=== PATIENT | female | born 1980 | race Caucasian/White ===

== ENCOUNTER → 2020-05-12 14:25 | Outpatient (BNVA) | payer OTHER, SELFPAY | PROVIDERS: Visit Provider Obstetrics & Gynecology | DX: Z12.4 Encounter for screening for malignant neoplasm of cervix (principal); Z01.419 Encounter for gynecological examination (general) (routine) without abnormal findings | CPT/HCPCS: 88175 ==

== ENCOUNTER 2020-12-07 09:15 | Emergency (ER) | payer OTHER, SELFPAY ==
[2020-12-07 09:54] VITALS: BP 129/82; PULSE 70; RESP 14; TEMP 35.8; O2SAT 100; BMI 20.5
--- NOTE | 2020-12-07 10:54 | CT_ITS ---
WS: [id number] CT ABDOMEN AND PELVIS NONCONTRAST HISTORY: right flank pain with nausea/vomiting TECHNIQUE: Imaging performed through the abdomen and pelvis. Coronal and sagittal reformats are submi tted. All CT scans at [facility] use at least one of these dose optimization techniques: auto mated exposure control; mA and/or kV adjustment per patient size (includes targeted exams where dose is matched to clinical indication); or iterative reconstruction. DLP: 485.01 mGy.cm COMPARISON: None available. Lower thorax: Lung bases are clear. Visualized heart is normal. No hiatal hernia. Liver: Normal size liver. No mass or bile duct dilatation. Gallbladder: Normal gallbladder. Pancreas: Normal size and attenuation. Normal pancreatic duct. No pancreatitis or mass. Spleen: Normal. Adrenal glands: Normal. No mass. Right kidney: Mildly enlarged edematous RIGHT kidney. Mild dilatation of the RIGHT renal pelvis and R IGHT ureter secondary to a 3 mm calcification at the RIGHT UV junction. This calcification may actual ly be extruded into the bladder. No additional renal calcification. Left kidney: Normal size kidney with no mass or hydronephrosis. Aorta: Normal abdominal aorta, no aneurysm or atherosclerosis. No free fluid, intraperitoneal air or significant lymphadenopathy. GI tract: Normal appendix. No GI tract obstruction or inflammation. Abdominal wall: Small umbilical hernia contains fat only. Pelvis: Normally distended bladder. Small fibroid measures 12 mm from the fundus of the uterus. 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 CT/CT kidney stone 17301 IMPRESSION: 1. Mild RIGHT hydroureteronephrosis secondary to 3 mm stone at the UV junction . 2. Normal appendix.
--- NOTE | 2020-12-07 10:59 | W.ED.FEMALGU ---
Documented by User: RIMA Yuen 12/08/20 07:16 HPI - Female Genitourinary General: Chief complaint: Urogenital-Female Stated complaint: Abdominal & Back Pain, Vomiting Time Seen by Provider: 12/07/20 09:18 History of Present Illness: HPI Narrative: Patient is a 40-year-old female comes to the ED with right flank pain nausea and vomiting. Patient says symptoms started this morning. Says she woke up with some mild back pain that then progressed got a lot worse. She says the pain was in the right side of her back and then radiated into the right flank and right pelvic region. She rates the pain currently a 10 out of 10. No worsening or relieving factors noted. She describes that she cannot get comfortable due to the pain. She has never had an episode of pain like this in the past. She has had multiple episodes of emesis since onset of severe pain. Denies any past history or surgeries in the abdomen. Patient says she is currently on her menstrual period, but says that it is normal and she is experiencing her normal bleeding. Denies any other vaginal discharge, dysuria, hematuria, diarrhea, constipation, fever, chills. Associated symptoms: Reports nausea; Deny abdominal pain or headache(s) Review of Systems Const: Denies: fever(s), chills or fatigue Eyes: Denies: change in vision or eye discomfort ENMT: Denies: throat pain, odynophagia, nasal discharge or nasal congestion Card: Denies: chest pain, palpitations, edema, swelling of feet/ankles, dyspnea on exertion or orthopnea Resp: Denies: dyspnea, productive cough or non-productive cough GI: Reports: nausea and vomiting; Denies: abdominal pain, diarrhea, constipation or hematochezia : Reports: flank pain (right flank); Denies: dysuria or hematuria Musc: Denies: neck pain, back pain or extremity swelling Skin/Breast: Denies: rash or new lesions Neuro: Denies: headache(s), numbness in extremities or weakness in extremities PFSH ED PFSH: Family History Denies family history of Diabetes Ovarian cyst CAD (coronary artery disease) Clotting disorder Hyperlipidemia Chronic kidney disease (CKD) Anesthesia complication Family history of thyroid problem Bleeding disorder Cancer Hypertension Stroke Social History Smoking and tobacco status: never smoked Alcohol intake: never Physical Exam Const: COMMON NORMALS: patient oriented x3 and alert GENERAL APPEARANCE: cooperative and in distress (Patient appears uncomfortable and in pain.) HENMT: COMMON NORMALS: normocephalic HEAD & SCALP: normocephalic MOUTH: Normal oral and palatal mucosa present THROAT: posterior oropharynx normal and uvula midline Neck/C-Spine: COMMON NORMALS: supple GENERAL: Yes normal visual inspection Resp: COMMON NORMALS: normal respiratory effort, No retractions, No use of accessory muscles and clear to auscultation bilaterally AUSCULTATION: clear to auscultation bilaterally Cardio: COMMON NORMALS: regular rate, regular rhythm, S1 normal heart sound present, S2 normal heart sound present, No gallops present (Cardio), No clicks present (Cardio), No murmurs present (Cardio) and Peripheral pulses 2+ throughout RATE: regular rate RHYTHM: regular rhythm HEART SOUNDS: S1 normal heart sound present and S2 normal heart sound present PERIPHERAL PULSES: Peripheral pulses 2+ throughout GI: COMMON NORMALS: Normal to inspection, nondistended, normoactive bowel sounds present, Soft to palpation, non-tender and no masses PALPATION: Yes Soft to palpation OTHER: No palpable abdominal tenderness noted in all 4 quadrants. Negative McBurney's point Rovsing sign. : BLADDER/KIDNEY EXAM: Yes CVA tenderness Back/Pelvis: GENERAL BACK: Yes CVA tenderness CVA tenderness: right Extremity: COMMON NORMALS: normal to inspection Neuro: COMMON NORMALS: patient oriented x3 and moves all extremities SENSORIUM/ORIENTATION: Yes alert Skin: GENERAL SKIN EXAM: dry skin Course ED course: After patient was given IV morphine and Toradol her pain improved greatly. Vital Signs: Vital signs: Vital Signs Temperature 96.4 F L 12/07/20 09:54 Pulse Rate 101 H 12/07/20 13:00 Respiratory Rate 18 12/07/20 11:12 Blood Pressure 113/90 12/07/20 13:00 Pulse Oximetry 98 12/07/20 13:00 MDM - Female MDM Narrative: Medical decision making narrative: Patient is a 40-year-old female comes to the ED with acute onset of right flank pain with nausea and vomiting. White blood cell count 16 and the rest of CBC and CMP were unremarkable. UA showed blood but no other findings suggestive of infection. Vital stable. CT of abdomen pelvis showed a 3 mm stone right UVJ. Patient was given IV fluids, Toradol, tamsulosin, zofran and her symptoms improved greatly. I placed order with case management for patient be referred to Dr. Llanos. Patient diagnosed with right kidney stone and discharged home with a prescription for tamsulosin, hydrocodone and Zofran. She was told to strain her urine to catch stone and bring it to Dr. Llanos appointment so they can further analyze it. Return to ED precautions given. Patient was told medical case worker will contact you in the next several days to set up an appointment with Dr. Llanos. Patient stood agree with plan. Lab Data: Labs: Lab Results 12/07/20 12/07/20 12/07/20 10:55 10:55 10:55 WBC 16.0 10^3/uL H 10 ^3/uL (4.0-10.0) RBC 5.37 10^6/uL H 10 ^6/uL (4.1-5.3) Hgb 15.6 g/dL H g/dL (11.5-15.3) Hct 47.4 % H % (37.0-47.0) MCV 88.3 fl fl (81-99) MCH 29.1 pg pg (28.0-34.0) MCHC 32.9 g/dL g/dL (30.0-36.0) RDW 11.9 % L % (12.1-15.1) Plt Count 289 10^3/cmm 10^3 /cmm (130-400) MPV 9.9 fL fL (7.4-10.4) Neut % (Auto) 90.4 % % Lymph % (Auto) 5.4 % % Greene % (Auto) 3.7 % % Eos % (Auto) 0.0 % % Baso % (Auto) 0.3 % % Neut # (Auto) 14.46 10^3/uL H 1 0^3/uL (1.8-7.7) Lymph # (Auto) 0.9 10^3/uL 10^3/ uL (0.8-4.8) Greene # (Auto) 0.6 10^3/uL 10^3/ uL (0.2-0.9) Eos # (Auto) 0.0 10^3/uL 10^3/ uL (0.0-0.8) Baso # (Auto) 0.1 10^3/uL 10^3/ uL (0.0-0.1) Nucleated RBC % (a uto) 0 % % Nucleated RBCs # 0.0 /100WBC /100W BC Sodium 138 mmol/L mmol/L (136-145) Potassium 3.9 mmol/L mmol/L (3.5-5.1) Chloride 102 mmol/L mmol/L (98-107) Carbon Dioxide 23 mmol/L mmol/L (22-29) Anion Gap 16.9 (5-19) BUN 13 mg/dL mg/dL (6-20) Creatinine 0.7 mg/dL mg/dL (0.5-0.9) GFR Calculation 91.8 mL/min mL/mi n (90-130) Glucose 120 mg/dL H mg/dL (65-115) Calculated Osmolal ity 287 mOsm/kg mOsm/ kg (285-295) Calcium 9.6 mg/dL mg/dL (8.5-10.5) Total Bilirubin 0.6 mg/dL mg/dL (0.15-1.2) AST 15 U/L U/L (0-32) ALT 9 U/L U/L (0-33) Alkaline Phosphata se 65 IU/L IU/L (35-105) Total Protein 7.9 g/dL g/dL (6.6-8.7) Albumin 4.7 g/dL g/dL (3.5-5.2) Globulin 3.2 g/dL g/dL (1.3-4.6) Lipase 24 U/L U/L (13-60) HCG, Qual Negative (Negative) Urine Color Urine Appearance Urine pH Ur Specific Gravit y Urine Protein Urine Glucose (UA) Urine Ketones Urine Blood Urine Nitrate Urine Bilirubin Urine Urobilinogen Ur Leukocyte Erin ase Urine RBC Urine WBC Ur Squamous Epith Cells Amorphous Sediment Urine Bacteria Urine Mucus 12/07/20 12:04 WBC RBC Hgb Hct MCV MCH MCHC RDW Plt Count MPV Neut % (Auto) Lymph % (Auto) Greene % (Auto) Eos % (Auto) Baso % (Auto) Neut # (Auto) Lymph # (Auto) Greene # (Auto) Eos # (Auto) Baso # (Auto) Nucleated RBC % (a uto) Nucleated RBCs # Sodium Potassium Chloride Carbon Dioxide Anion Gap BUN Creatinine GFR Calculation Glucose Calculated Osmolal ity Calcium Total Bilirubin AST ALT Alkaline Phosphata se Total Protein Albumin Globulin Lipase HCG, Qual Urine Color Yellow (Yellow) Urine Appearance Cloudy (CLEAR) Urine pH 6 (5-7) Ur Specific Gravit y 1.015 (1.005-1.030) Urine Protein Neg (Negative) Urine Glucose (UA) Norm (Normal) Urine Ketones Negative (Negative) Urine Blood 3+ H (Negative) Urine Nitrate Negative (Negative) Urine Bilirubin Neg (Negative) Urine Urobilinogen Norm mg/dL mg/dL (Negative) Ur Leukocyte Erin ase Negative (Negative) Urine RBC 25-40 /hpf H /hpf (0-2) Urine WBC 0-4 /hpf H /hpf (0-5) Ur Squamous Epith Cells 0-4 /hpf H /hpf (0-5) Amorphous Sediment Not Reportable Urine Bacteria 1+ /hpf H /hpf (NONE) Urine Mucus 1+ /hpf /hpf Imaging Data: CT Abd/Pel: Attestation: I personally reviewed and interpreted this imaging study as follows: Radiologist's impression: [place] [address] CT Scan Report Signed Patient: Maria Isabel Mckeon Unit #: [id number] : 1980 Age/Sex: 40 / F ADM Date: 12/07/20 Loc: ER Room/Bed: Attending Dr: Ordering Provider/Ordering MD: Yordy Murphy Date of Service: 12/07/20 Procedure(s): CT kidney stone 95303 Accession Number(s): [id number] Report Number: [id number] WS: [id number] CT ABDOMEN AND PELVIS NONCONTRAST HISTORY: right flank pain with nausea/vomiting TECHNIQUE: Imaging performed through the abdomen and pelvis. Coronal and sagittal reformats are submitted. All CT scans at [facility] use at least one of these dose optimization techniques: automated exposure control; mA and/or kV adjustment per patient size (includes targeted exams where dose is matched to clinical indication); or iterative reconstruction. DLP: 485.01 mGy.cm COMPARISON: None available. Lower thorax: Lung bases are clear. Visualized heart is normal. No hiatal hernia. Liver: Normal size liver. No mass or bile duct dilatation. Gallbladder: Normal gallbladder. Pancreas: Normal size and attenuation. Normal pancreatic duct. No pancreatitis or mass. Spleen: Normal. Adrenal glands: Normal. No mass. Right kidney: Mildly enlarged edematous RIGHT kidney. Mild dilatation of the RIGHT renal pelvis and RIGHT ureter secondary to a 3 mm calcification at the RIGHT UV junction. This calcification may actually be extruded into the bladder. No additional renal calcification. Left kidney: Normal size kidney with no mass or hydronephrosis. Aorta: Normal abdominal aorta, no aneurysm or atherosclerosis. No free fluid, intraperitoneal air or significant lymphadenopathy. GI tract: Normal appendix. No GI tract obstruction or inflammation. Abdominal wall: Small umbilical hernia contains fat only. Pelvis: Normally distended bladder. Small fibroid measures 12 mm from the fundus of the uterus. 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 CT/CT kidney stone [id number] IMPRESSION: 1. Mild RIGHT hydroureteronephrosis secondary to 3 mm stone at the UV junction. 2. Normal appendix. Dictated By: Anna Davila DO Signed By: Anna Davila DO Signed Date/Time: 12/07/20 1202 DD/ 1158 Discharge Plan Discharge Patient Disposition: Home Clinical Impression: Kidney stone on right side Condition: Stable Prescriptions: New tamsulosin 0.4 mg capsule 0.4 mg PO DAILY Qty: 15 RF: 0 naproxen 500 mg tablet 500 mg PO BID PRN (Reason: pain) Qty: 15 RF: 0 ondansetron 4 mg tablet,disintegrating 4 mg PO Q8H PRN (Reason: nausea and vomiting) Qty: 10 RF: 0 No Action Zyrtec 10 mg capsule 10 mg PO DAILY RF: 0 norethindrone-e.estradiol-iron [Blisovi Fe 04/01 (28)] 1 mg-20 mcg (21)/75 mg (7) tablet 1 tab PO DAILY RF: 0 levonorgestrel-ethinyl estrad [Aviane] 0.1-20 mg-mcg tablet 1 tab PO DAILY Qty: 84 RF: 5 Discharge Orders: Discharge ED (Routine); Ordered 12/07/20 Ordered By: Yordy Arellano: Abigail Randall, [employer] [Primary Care Provider] - Discharge Diet: Regular Discharge Activity: Increase activity as tolerated Patient Instructions: Kidney Stones (ED), How to Strain Your Urine (ED), Opioid Safety Activity Restrictions/Additional Instructions: Follow-up with medical provider as directed. Case management should be contacting you in the next several days to set up an appointment with Dr. Llanos the urologist. Strain urine to catch stone and drink lots of fluid to stay hydrated and help pass stone. Take medications as prescribed. Tamsulosin you can take daily until you passed the kidney stone then stop taking medication. Return to the ER or your medical provider if condition worsens. Please read and understand discharge instructions. If any questions, please ask. Coding Level of Care Code ED Electrical Tech/Project Manager for Chg Fwd Exam Comprehensive Documented by User: Angel Perera DO 12/08/20 08:18 HPI - Female Genitourinary General: Chief complaint: Urogenital-Female Stated complaint: Abdominal & Back Pain, Vomiting Time Seen by Provider: 12/07/20 09:18 [facility] ED PFSH: Family History Denies family history of Diabetes Ovarian cyst CAD (coronary artery disease) Clotting disorder Hyperlipidemia Chronic kidney disease (CKD) Anesthesia complication Family history of thyroid problem Bleeding disorder Cancer Hypertension Stroke Social History Smoking and tobacco status: never smoked Alcohol intake: never Course Vital Signs: Vital signs: Vital Signs Temperature 96.4 F L 12/07/20 09:54 Pulse Rate 101 H 12/07/20 13:00 Respiratory Rate 18 12/07/20 11:12 Blood Pressure 113/90 12/07/20 13:00 Pulse Oximetry 98 12/07/20 13:00 MDM - Female MDM Narrative: Medical decision making narrative: Case reviewed with Yordy Murphy. Agree with assessment and plan. Lab Data: Labs: Lab Results 12/07/20 12/07/20 12/07/20 10:55 10:55 10:55 WBC 16.0 10^3/uL H 10 ^3/uL (4.0-10.0) RBC 5.37 10^6/uL H 10 ^6/uL (4.1-5.3) Hgb 15.6 g/dL H g/dL (11.5-15.3) Hct 47.4 % H % (37.0-47.0) MCV 88.3 fl fl (81-99) MCH 29.1 pg pg (28.0-34.0) MCHC 32.9 g/dL g/dL (30.0-36.0) RDW 11.9 % L % (12.1-15.1) Plt Count 289 10^3/cmm 10^3 /cmm (130-400) MPV 9.9 fL fL (7.4-10.4) Neut % (Auto) 90.4 % % Lymph % (Auto) 5.4 % % Greene % (Auto) 3.7 % % Eos % (Auto) 0.0 % % Baso % (Auto) 0.3 % % Neut # (Auto) 14.46 10^3/uL H 1 0^3/uL (1.8-7.7) Lymph # (Auto) 0.9 10^3/uL 10^3/ uL (0.8-4.8) Greene # (Auto) 0.6 10^3/uL 10^3/ uL (0.2-0.9) Eos # (Auto) 0.0 10^3/uL 10^3/ uL (0.0-0.8) Baso # (Auto) 0.1 10^3/uL 10^3/ uL (0.0-0.1) Nucleated RBC % (a uto) 0 % % Nucleated RBCs # 0.0 /100WBC /100W BC Sodium 138 mmol/L mmol/L (136-145) Potassium 3.9 mmol/L mmol/L (3.5-5.1) Chloride 102 mmol/L mmol/L (98-107) Carbon Dioxide 23 mmol/L mmol/L (22-29) Anion Gap 16.9 (5-19) BUN 13 mg/dL mg/dL (6-20) Creatinine 0.7 mg/dL mg/dL (0.5-0.9) GFR Calculation 91.8 mL/min mL/mi n (90-130) Glucose 120 mg/dL H mg/dL (65-115) Calculated Osmolal ity 287 mOsm/kg mOsm/ kg (285-295) Calcium 9.6 mg/dL mg/dL (8.5-10.5) Total Bilirubin 0.6 mg/dL mg/dL (0.15-1.2) AST 15 U/L U/L (0-32) ALT 9 U/L U/L (0-33) Alkaline Phosphata se 65 IU/L IU/L (35-105) Total Protein 7.9 g/dL g/dL (6.6-8.7) Albumin 4.7 g/dL g/dL (3.5-5.2) Globulin 3.2 g/dL g/dL (1.3-4.6) Lipase 24 U/L U/L (13-60) HCG, Qual Negative (Negative) Urine Color Urine Appearance Urine pH Ur Specific Gravit y Urine Protein Urine Glucose (UA) Urine Ketones Urine Blood Urine Nitrate Urine Bilirubin Urine Urobilinogen Ur Leukocyte Erin ase Urine RBC Urine WBC Ur Squamous Epith Cells Amorphous Sediment Urine Bacteria Urine Mucus 12/07/20 12:04 WBC RBC Hgb Hct MCV MCH MCHC RDW Plt Count MPV Neut % (Auto) Lymph % (Auto) Greene % (Auto) Eos % (Auto) Baso % (Auto) Neut # (Auto) Lymph # (Auto) Greene # (Auto) Eos # (Auto) Baso # (Auto) Nucleated RBC % (a uto) Nucleated RBCs # Sodium Potassium Chloride Carbon Dioxide Anion Gap BUN Creatinine GFR Calculation Glucose Calculated Osmolal ity Calcium Total Bilirubin AST ALT Alkaline Phosphata se Total Protein Albumin Globulin Lipase HCG, Qual Urine Color Yellow (Yellow) Urine Appearance Cloudy (CLEAR) Urine pH 6 (5-7) Ur Specific Gravit y 1.015 (1.005-1.030) Urine Protein Neg (Negative) Urine Glucose (UA) Norm (Normal) Urine Ketones Negative (Negative) Urine Blood 3+ H (Negative) Urine Nitrate Negative (Negative) Urine Bilirubin Neg (Negative) Urine Urobilinogen Norm mg/dL mg/dL (Negative) Ur Leukocyte Erin ase Negative (Negative) Urine RBC 25-40 /hpf H /hpf (0-2) Urine WBC 0-4 /hpf H /hpf (0-5) Ur Squamous Epith Cells 0-4 /hpf H /hpf (0-5) Amorphous Sediment Not Reportable Urine Bacteria 1+ /hpf H /hpf (NONE) Urine Mucus 1+ /hpf /hpf Discharge Plan Discharge Patient Disposition: Home Clinical Impression: Kidney stone on right side Condition: Stable Prescriptions: New tamsulosin 0.4 mg capsule 0.4 mg PO DAILY Qty: 15 RF: 0 naproxen 500 mg tablet 500 mg PO BID PRN (Reason: pain) Qty: 15 RF: 0 ondansetron 4 mg tablet,disintegrating 4 mg PO Q8H PRN (Reason: nausea and vomiting) Qty: 10 RF: 0 No Action Zyrtec 10 mg capsule 10 mg PO DAILY RF: 0 norethindrone-e.estradiol-iron [Blisovi Fe 04/01 (28)] 1 mg-20 mcg (21)/75 mg (7) tablet 1 tab PO DAILY RF: 0 levonorgestrel-ethinyl estrad [Aviane] 0.1-20 mg-mcg tablet 1 tab PO DAILY Qty: 84 RF: 5 Discharge Orders: Discharge ED (Routine); Ordered 12/07/20 Ordered By: Yordy Murphy Referrals: Abigail Randall, [employer] [Primary Care Provider] - Discharge Diet: Regular Discharge Activity: Increase activity as tolerated Patient Instructions: Kidney Stones (ED), How to Strain Your Urine (ED), Opioid Safety Activity Restrictions/Additional Instructions: Follow-up with medical provider as directed. Case management should be contacting you in the next several days to set up an appointment with Dr. Llanos the urologist. Strain urine to catch stone and drink lots of fluid to stay hydrated and help pass stone. Take medications as prescribed. Tamsulosin you can take daily until you passed the kidney stone then stop taking medication. Return to the ER or your medical provider if condition worsens. Please read and understand discharge instructions. If any questions, please ask. Coding Level of Care Code ED Electrical Tech/Project Manager for Alex Fwd Exam Comprehensive
[2020-12-07] MEDS: sodium chloride 0.9% 1,000 ML 999 ML IV (11:09)
[2020-12-07 11:10] VITALS: RESP 14; O2SAT 100
[2020-12-07] MEDS: morphine 4 mg/mL SDV 1 mL IVP (11:10)
[2020-12-07] MEDS: ondansetron 2 mg/ML SDV 2 mL 4 MG IVP (11:10)
[2020-12-07 11:12] VITALS: BP 107/60; RESP 18
[2020-12-07 11:22] LABS: Basophils # 0.1 10^3/uL (0.0-0.1); Basophils % 0.3 %; Hematocrit 47.4 % (37.0-47.0); Hemoglobin 15.6 g/dL (11.5-15.3); Lymphocytes # 0.9 10^3/uL (0.8-4.8); Lymphocytes % 5.4 %; Mean Corpuscular HGB Conc 32.9 g/dL (30.0-36.0); Mean Corpuscular Hemoglobin 29.1 pg (28.0-34.0); Mean Corpuscular Volume 88.3 fl (81-99); Mean Platelet Volume 9.9 fL (7.4-10.4); Monocytes # 0.6 10^3/uL (0.2-0.9); Monocytes % 3.7 %; Neutrophils # 14.46 10^3/uL (1.8-7.7); Neutrophils % 90.4 %; Nucleated Red Blood Cells % 0 %; Platelet Count 289 10^3/cmm (130-400); Red Blood Count 5.37 10^6/uL (4.1-5.3); Red Cell Distribution Width 11.9 % (12.1-15.1)
[2020-12-07 11:37] LABS: Alanine Aminotransferase 9 U/L (0-33); Albumin Level 4.7 g/dL (3.5-5.2); Alkaline Phosphatase 65 IU/L (35-105); Aspartate Amino Transferase 15 U/L (0-32); Blood Urea Nitrogen 13 mg/dL (6-20); Calcium 9.6 mg/dL (8.5-10.5); Carbon Dioxide 23 mmol/L (22-29); Chloride 102 mmol/L (98-107); Globulin 3.2 g/dL (1.3-4.6); Glomerular Filtration Rate 91.8 mL/min (90-130); Glucose 120 mg/dL (65-115); HCG, Serum Qual Negative (Negative); Lipase 24 U/L (13-60); Osmolality Calculated 287 mOsm/kg (285-295); Sodium 138 mmol/L (136-145); Total Bilirubin 0.6 mg/dL (0.15-1.2); Total Protein 7.9 g/dL (6.6-8.7)
[2020-12-07 11:38] LABS: Anion Gap 16.9 (5-19); Potassium 3.9 mmol/L (3.5-5.1)
[2020-12-07 12:08] VITALS: BP 129/70; PULSE 100; O2SAT 100
[2020-12-07 12:24] LABS: Add Urine Microscopic? YES; Bilirubin Urine Neg (Negative); Blood Urine 3+ (Negative); Glucose Urine UA Norm (Normal); Ketones Urine Negative (Negative); Leukocyte Esterase Urine Negative (Negative); Nitrate Urine Negative (Negative); Protein Urine Neg (Negative); RBC Urine 25-40 /hpf (0-2); Specific Gravity, Urine 1.015 (1.005-1.030); Squamous Epithelial Cell Urine 0-4 /hpf (0-5); Urine Appearance Cloudy (CLEAR); Urine Color Yellow (Yellow); Urobilinogen Urine Norm (Negative); WBC Urine 0-4 /hpf (0-5); pH Urine 6 (5-7)
[2020-12-07 12:25] LABS: Add Urine Culture? Yes; Bacteria Urine 1+ /hpf; Mucus Urine 1+ /hpf
[2020-12-07] MEDS: tamsulosin 0.4 mg Capsule PO (12:50)
[2020-12-07] MEDS: ketorolac 30 mg/mL INJ IVP (12:50)
[2020-12-07 13:00] VITALS: BP 113/90; PULSE 101; O2SAT 98
--- NOTE | 2020-12-08 08:23 | DCPLANNER ---
corporate compliance manager had message to schedule a follow up appointment for patient with Dr. Llanos. corporate compliance manager called the office of Dr. Llanos, spoke with Hardik, gave clinic patients information would be printed and reviewed. Clinic will call patient with appointment information.
--- NOTE | 2020-12-09 14:11 | DCPLANNER ---
Patient had a follow up appointment scheduled for 12.09.[address] Llanos - patient did not attend appointment.
== END 2020-12-07 12:59 | disposition home or self-care (01) ==
PROVIDERS: Emergency Provider Physician Assistant; PCP Nurse Practitioner
DX: N20.0 Calculus of kidney (principal)
CPT/HCPCS: 74176; 80053; 81001; 83690; 84703; 85025; 87040; 87086; 96361; 96374; 96375; 99284; J1885; J2270; J2405; J7030

== ENCOUNTER 2021-08-02 10:27 | Outpatient (CLI) | payer OTHER, SELFPAY ==
--- NOTE | 2021-08-02 10:37 | MM_ITS ---
WS: [id number] BILATERAL SCREENING DIGITAL BREAST TOMOSYNTHESIS MAMMOGRAM WITH CAD HISTORY: Z12.39 - Encounter for other screening for malignant neoplasm... COMPARISON: None available. Bilateral CC and MLO views with tomosynthesis and synthetic mammography submitted. Computer aided det ection analyzed. Breast composition: The breasts are heterogeneously dense, which may obscure small masses. No suspici ous masses, microcalcifications or architectural distortion. Benign calcification central RIGHT breas [place]. MM/[place] [id number] IMPRESSION: BI-RADS: 2-Benign FOLLOW UP: 1 Year Follow-up
== END 2021-08-02 10:28 | disposition home or self-care (01) ==
LOC: RAD 10:29
PROVIDERS: PCP Nurse Practitioner; Visit Provider Nurse Practitioner
DX: Z12.31 Encounter for screening mammogram for malignant neoplasm of breast (principal)
CPT/HCPCS: 77063; 77067